=== PATIENT | female | born 1960 | race Caucasian/White ===

== ENCOUNTER 2018-01-14 11:50 | Day surgery (SDC) | payer BC ==
--- NOTE | 2018-01-12 16:42 | HP ---
CC: Dr. Lakia Bryan * PREOPERATIVE HISTORY AND PHYSICAL: DATE OF ADMISSION: 01/14/18 This patient is scheduled for same-day surgery admission by Dr. Dominguez on Wednesday , 01/14/18. DATE OF PREOPERATIVE HISTORY AND PHYSICAL EXAMINATION: 01/12/18. ATTENDING SURGEON: Dr. Gabriela Dominguez * (dictated by Lexi Valente NP). CHIEF COMPLAINT: Mass on the anterior chest wall. HISTORY OF PRESENT ILLNESS: The patient is a 57-year-old female recently evaluated by Dr. Dominguez for a mass on the anterior/superior chest wall. The patient first noticed this lump when her hand brushed against her sternum in October of 2017. Since then she thinks the mass has increased in size. She had an ultrasound and CT scan, which do not identify any abnormality. Dr. Dominguez examined the patient and noted a soft, mobile vertically oriented mass overlying the sternum most likely consistent with a lipoma. Dr. Dominguez reviewed the findings with the patient and has recommended excision of the chest wall mass as a same day surgery procedure. She described the nature of the surgical procedure, the rationale for the procedure, the relevant risks and benefits and today, I reviewed the typical postoperative care and recovery. The patient has had a chance to ask questions and stated that she understands the information and is satisfied with the answers given to her questions. She will sign surgical consent on the day of surgery. PAST MEDICAL HISTORY: Significant for: 1. Gastroesophageal reflux disease. 2. Depression. 3. Hyperlipidemia. 4. Back pain, specifically in the SI joint. 5. Right-sided neck pain with repetitive use. 6. Anxiety. PAST SURGICAL HISTORY: Includes: 1. Tonsillectomy. 2. Appendectomy. 3. Hysterectomy. 4. Ovarian cystectomy. 5. Excision of a benign right breast mass. CONTRACT SPECIALIST HISTORY: 2, para 2. She is up-to-date with pelvic Pap smear within the past 3 years and up-to-date with mammogram. MEDICATIONS: 1. Fluticasone 50 mcg per actuation 2 sprays in each nostril daily. 2. Atorvastatin 40 mg 1-1/2 tablets p.o. at bedtime. 3. Linzess 145 mcg p.o. daily in the morning. 4. Gabapentin 300 mg 3 tablets by mouth at bedtime. 5. Cyclobenzaprine 10 mg at bedtime as needed. 6. Xyzal 5 mg p.o. daily. 7. Multivitamins 1 daily. 8. Zantac 150 mg p.o. b.i.d. 9. Melatonin 5 mg p.o. at bedtime. 10. Magnesium oxide 250 mg 2 tablets daily. 11. Duloxetine 60 mg p.o. daily in the morning. 12. Ibuprofen 600 mg as needed. ALLERGIES: EXCEDRIN caused some type of unspecified reaction. FAMILY HISTORY: No known anesthesia complications or bleeding tendencies. She thinks her father did have a blood clot. SOCIAL HISTORY: She is and is a nonsmoker. She occasionally drinks alcohol and denies the use of other substances. She is employed as a retail cashier. REVIEW OF SYSTEMS: Constitutional: Normal. No fevers, chills, excessive fatigue. Endocrine: Normal. No diabetes, or thyroid disease. Hematologic: Normal. No easy bruising or bleeding. She has never received a blood transfusion. Respiratory: Normal. No dyspnea on exertion. No chronic cough. Cardiovascular: Normal. No anginal chest pain or palpitations. Gastrointestinal: Normal. No nausea, vomiting, diarrhea, GI bleeding or constipation or change in bowel habits; she does have a history of GERD. Genitourinary: Normal. No dysuria. Musculoskeletal: Abnormal with chronic back pain, specifically at the SI joint and occasional right-sided neck pain with repetitive use. Integumentary: Palpable, soft, mobile mass anterior chest wall over the sternum. No rashes. No skin ulcerations. Neurologic: No headache or blurred vision. No areas of focal weakness or numbness. Psychiatric: History of depression, which she states is very mild now. Normal affect. General: No previous anesthesia complications. No history of deep vein thrombosis or pulmonary embolism. PHYSICAL EXAMINATION GENERAL SURVEY: The patient is a 57-year-old female, well developed, well nourished, in no acute distress. VITAL SIGNS: Height 63 inches, weight 157 pounds, body mass index 27.8. Blood pressure 120/82, pulse 84 and regular, respiratory rate 18, temperature 98.5 tympanic. HEENT: Benign. NECK: Supple. No cervical lymphadenopathy. No supraclavicular lymphadenopathy. LUNGS: Breath sounds bilaterally clear and equal. HEART: Regular rate and rhythm. No murmurs, or rubs appreciated. ABDOMEN: Active bowel sounds, soft and nondistended, nontender throughout. No obvious masses or organomegaly or evidence of ventral hernia. BACK: No CVA tenderness. PELVIC EXAM: Deferred. RECTAL EXAM: Deferred. EXTREMITIES: Warm without edema or skin ulceration. NEUROLOGIC: Alert and oriented x3, steady gait. SKIN: Warm, dry, intact. Palpable soft mobile mass over the sternal region. No associated erythema or rash. No drainage. IMPRESSION: Mass, anterior chest wall over the sternum. PLAN: Same day surgery admission to Dr. Dominguez's service on 01/14/18, for excision of chest wall mass. LEXI VALENTE, LITERATURE TEACHER [id number]/[facility] #: [id number] ZIGGY
[~2018-01-14 11:50] MED LIST: Buffered Lidocaine 0.9% SYRIN* 5 ML/SYR SYRINGE INTRADERM ONE; Dexamethasone IV* 4 MG/ML 1 ML (4 MG) IV SLOW PU ONE; Famotidine IV* 10 MG/ML 2 ML (20 mg) IV ONE
[2018-01-14] MEDS ORDERED: Famotidine TAB* 20 MG ONE (11:53)
[2018-01-14] MEDS ORDERED: Buffered Lidocaine 0.9% SYRIN* 5 ML/SYR SYRINGE ONE (11:53)
[2018-01-14] MEDS ORDERED: ceFAZolin 2 GM PREMIX (*) 2 GM/50 ML BAG IVPB ONE (11:53)
[2018-01-14] MEDS ORDERED: Dexamethasone IV* 4 MG/ML 1 ML (4 MG) ONE (11:53)
[2018-01-14] MEDS ORDERED: fentaNYL* 50 MCG/ML 2 ML VIAL (100 MCG VIAL) ONE ×2 (13:24→14:05)
[2018-01-14] MEDS ORDERED: Midazolam* 1 MG/ML 5 ML VIAL (5 MG) ONE (13:24)
[2018-01-14] MEDS ORDERED: Bupivacaine 0.25% SDV* 30 ML ONE (13:29)
[2018-01-14] MEDS ORDERED: Lidocaine 1% MPF wEPI 200,000* 30 ML SDV ONE (13:29)
[2018-01-14] MEDS ORDERED: Lidocaine 2% PF * 5 ML VIAL ONE (13:32)
[2018-01-14] MEDS ORDERED: Propofol* 10 MG/ML 20 ML BTL IV PUSH ONE (13:32)
[2018-01-14] MEDS ORDERED: HYDROcodone/ACETAMIN 5-325 MG* 1 TAB PO PRN ×2 (14:32)
--- NOTE | 2018-01-14 14:32 | BRIEFOPN ---
Brief Operative Note - Surgery Procedures: Procedures COLONOSCOPY (10/11/08) OTH UNILAT SALPINGO-OOPHORECTOMY (05/31/08) OTHER AND UNSPECIFIED TOTAL ABDOMINAL HYSTERECTOMY (05/31/08) OTHER ENDOSCOPY OF SM INTEST (10/11/08) 01/14/18 Op Note Pre-op dx: mass of the chest wall Post-op dx: same Procedure: excisioin of mass of chest wall Surgeon: Alberto Asst: none Anesth: local-MAC EBL: 10 cc SCDs on during surgery Abx: given pre-op Complications: none Pt. tolerated procedure well and was transferred to in a stable condition. [facility]
[2018-01-14 15:07] VITALS: BP 130/88
--- NOTE | 2018-01-15 06:46 | OP ---
CC: Lakia Bryan MD * DATE OF OPERATION: 01/14/18 - SDS DATE OF : 64 SURGEON: Gabriela Dominguez M.D. HARD METALS HAND ENGRAVER: There was no assistant professor of education for this case. PRE-OP DIAGNOSIS: Mass of the chest wall. POST-OP DIAGNOSIS: Mass of the chest wall. OPERATIVE PROCEDURE: Excision of mass of the chest wall. INDICATIONS: Ms. Talbert is a 57-year-old woman, who presented to the office with a mass that had been increasing in size over several months, prompting the plan for surgical intervention. DESCRIPTION OF PROCEDURE: She was brought to the operating room and placed on the OR table in supine position and given IV sedation. The area was prepped and draped in the usual sterile fashion. After infiltrating with local anesthetic, an incision was made over the mass, which was located over the sternum. Subcutaneous tissue was then divided with electrocautery, and sharp and blunt dissection to excise what appeared to be a lipomatous mass with multiple lobulations. All lobulations were excised as well as could be accomplished and the mass was removed and handed off as a specimen, it measured approximately 4 cm in diameter. Hemostasis was assured with electrocautery and once this was adequate, the wound was irrigated with saline and then additional local was instilled into the cavity. Closure was then accomplished with 3-0 Vicryl to reapproximate the subcutaneous tissue, and the skin was closed with 4- 0 Prolene in a subcuticular fashion. Steri-strips and a dry sterile dressing were applied. All sponge and instrument counts were correct. The patient tolerated the procedure well and was transferred to Recovery in a stable condition. [id number]/[facility] #: [id number] [facility]
== END 2018-01-14 15:15 | disposition home or self-care (01) ==
LOC: OR 11:50
PROVIDERS: ATTEND Surgery
DX: D17.1 Benign lipomatous neoplasm of skin and subcutaneous tissue of trunk (principal); E78.5 Hyperlipidemia, unspecified; F41.8 Other specified anxiety disorders; K21.9 Gastro-esophageal reflux disease without esophagitis; M54.2 Cervicalgia; M53.3 Sacrococcygeal disorders, not elsewhere classified
CPT/HCPCS: 88304; A9270-GY; J0690; J1100; J2001; J2250; J2704; J3010